=== PATIENT | male | born 1935 | race Caucasian/White ===

== ENCOUNTER 2016-08-02 10:24 | Inpatient (IN) | payer MEDICARE ==
[2016-08-01 11:09] LABS: ASPARTATE AMINO TRANSFERASE 26 U/L (15-37); BLOOD UREA NITROGEN 33 mg/dL (7-18)
[~2016-08-02] VITALS: Ht 180.3 cm; Wt 73.5 kg
[~2016-08-02 10:24] MED LIST: APIX5TAB PO; ASPI-496 PO; ASPI-621 PO; ATOR40TA PO; CALC-192 PO; CEPH-368 PO; CHOL10002 PO; CIPR500T87 PO; FOLI-17 PO; HYDR-3138 PO; LEVO250T23 PO; NAPR220T29 PO; NITR0.4T8 SL; NITR4.1S2 TL; TAMS-11 PO; VALS1TAB15 PO; VALS80TA3 PO; ZOLP10TA PO
[2016-08-02] MEDS ORDERED: FENTANYL PF 100 MCG/2ML ONE (11:46)
[2016-08-02] MEDS ORDERED: MIDAZOLAM 1 MG/ML, 5ML ONE (11:46)
[2016-08-02] MEDS ORDERED: VERAPAMIL 2.5 MG/ML, 2ML ONE (11:46)
[2016-08-02] MEDS ORDERED: BIVALIRUDIN 250 MG ONE ×2 (11:46→13:50)
[2016-08-02] MEDS ORDERED: TICAGRELOR 90 MG TABLET ONE (11:46)
[2016-08-02] MEDS ORDERED: NITROGLYCERIN 5 MG/ML, 10ML ONE (11:46)
[2016-08-02] MEDS ORDERED: LIDOCAINE 2%, 20ML ONE (11:47)
[2016-08-02] MEDS ORDERED: HEPARIN 1,000 UNITS/ML, 10ML ONE (11:47)
[2016-08-02] MEDS ORDERED: DIPHENHYDRAMINE 50 MG/ML, 1ML ONE (12:19)
[2016-08-02] MEDS ORDERED: NITROGLYCERIN/D5W PMX 250 ML ONE (13:22)
[2016-08-02 16:00] VITALS: BP 112/73
[2016-08-02] MEDS ORDERED: ACETAMINOPHEN 325 MG TABLET PO PRN (16:30)
[2016-08-02] MEDS ORDERED: BIVALIRUDIN 250 MG in DEXTROSE 5% 50 ML IV SCH (16:30)
[2016-08-02] MEDS ORDERED: ZOLPIDEM 5MG TABLET PO PRN (16:30)
[2016-08-02] MEDS ORDERED: ONDANSETRON 2MG/ML, 2ML IVPush PRN (16:30)
[2016-08-02] MEDS: SODIUM CHLORIDE 0.9% 1,000 ML IV SCH (17:28)
[2016-08-02 19:14] VITALS: BP 93/59
[2016-08-02] MEDS ORDERED: HYDROcodone/APAP 5/325 TABLET ONE (20:14)
[2016-08-02] MEDS: HYDROcodone/APAP 5/325 TABLET PO PRN ×2 (20:17→21:56)
[2016-08-02] MEDS ORDERED: TAMSULOSIN 0.4 MG CAP.ER.24H PO SCH (21:00)
[2016-08-02] MEDS: TICAGRELOR 90 MG TABLET PO SCH (21:56)
[2016-08-03 00:34] VITALS: BP 96/56
[2016-08-03] MEDS: SODIUM CHLORIDE 0.9% 1,000 ML IV SCH ×2 (00:56→08:30)
[2016-08-03 05:53] LABS: BLOOD UREA NITROGEN 31 mg/dL (7-18)
[2016-08-03 07:31] VITALS: BP 91/51
[2016-08-03] MEDS: TICAGRELOR 90 MG TABLET PO SCH (08:45)
[2016-08-03] MEDS ORDERED: ASPIRIN 81 MG TABLET EC PO SCH (09:00)
[2016-08-03] MEDS ORDERED: ASPI-621 PO (09:11)
[2016-08-03] MEDS ORDERED: TICA90TA PO (09:11)
== END 2016-08-03 12:30 | disposition home or self-care (01) | DRG 246 ==
LOC: CACL 10:24 → 5SO 15:59 → CACL 16:30 → DCLOUNGE 08-03 11:47
PROVIDERS: ADMIT Internal Medicine Cardiovascular Disease; ATTEND Internal Medicine Cardiovascular Disease
PROC: 027137Z Dilation of Coronary Artery, Two Arteries with Four or More Drug-eluting Intraluminal Devices, Percutaneous Approach (ICD-10-PCS; principal; 2016-08-02)
PROC: 02703DZ Dilation of Coronary Artery, One Artery with Intraluminal Device, Percutaneous Approach (ICD-10-PCS; 2016-08-02)
PROC: 4A023N7 Measurement of Cardiac Sampling and Pressure, Left Heart, Percutaneous Approach (ICD-10-PCS; 2016-08-02)
PROC: B2111ZZ Fluoroscopy of Multiple Coronary Arteries using Low Osmolar Contrast (ICD-10-PCS; 2016-08-02)
PROC: B2151ZZ Fluoroscopy of Left Heart using Low Osmolar Contrast (ICD-10-PCS; 2016-08-02)
DX: I25.110 Atherosclerotic heart disease of native coronary artery with unstable angina pectoris (principal); I35.0 Nonrheumatic aortic (valve) stenosis; D64.9 Anemia, unspecified; E78.5 Hyperlipidemia, unspecified; N40.0 Benign prostatic hyperplasia without lower urinary tract symptoms; E78.00 Pure hypercholesterolemia, unspecified; I10 Essential (primary) hypertension; I48.0 Paroxysmal atrial fibrillation; M19.90 Unspecified osteoarthritis, unspecified site; Z86.73 Personal history of transient ischemic attack (TIA), and cerebral infarction without residual deficits
CPT/HCPCS: 36415; 71020; 80048; 80053; 82040; 85014; 85018; 85025; 85610; 85730; 93005; 93458; 99156; 99157; C1876; C1894; C9600; J0583; J1644; J2250; J3010; J3490; C1725; C1769; C1874; C1887; J1200; J7030; Q9967

== ENCOUNTER → 2017-06-28 | Outpatient (CLI) | payer MEDICARE ==
[~2017-06-28] MED LIST changes: -HYDR-3138 PO; +HYDR-3237 PO; +NAPR-816 PO; -NAPR220T29 PO; +NITR0.4T28 SL; -NITR0.4T8 SL; +TICA90TA PO
== END | disposition home or self-care (01) ==
LOC: CVU 14:31
PROVIDERS: ATTEND Internal Medicine Cardiovascular Disease
DX: I71.4 Abdominal aortic aneurysm, without rupture (principal); I35.0 Nonrheumatic aortic (valve) stenosis; I25.10 Atherosclerotic heart disease of native coronary artery without angina pectoris; I10 Essential (primary) hypertension; E78.5 Hyperlipidemia, unspecified; I48.91 Unspecified atrial fibrillation; Z95.5 Presence of coronary angioplasty implant and graft
CPT/HCPCS: 93306

== ENCOUNTER 2017-07-06 07:36 | Observation (INO) | payer MEDICARE ==
[2017-07-05 10:57] VITALS: BP 131/60
[2017-07-05 11:15] LABS: BASOPHILS # (AUTO) 0.04 x10^3/uL (0-0.1); BASOPHILS % (AUTO) 1 % (0-1); EOSINOPHILS # (AUTO) 0.25 x10^3/uL (0-0.4); EOSINOPHILS % (AUTO) 4 % (1-7); LYMPHOCYTES # (AUTO) 1.55 x10^3/uL (1-3.4); LYMPHOCYTES % (AUTO) 24 % (22-44); MD NO; MEAN CORPUSCULAR HEMOGLOBIN 32.2 pg (27.5-34.5); MEAN CORPUSCULAR HGB CONC 33.7 g/dL (33.2-36.2); MEAN CORPUSCULAR VOLUME 95.4 fL (81-97); MEAN PLATELET VOLUME 9.1 fL (7.4-10.4); MONOCYTES % (AUTO) 8 % (2-9); NEUTROPHILS # (AUTO) 4.16 x10^3/uL (1.8-6.8); NEUTROPHILS % (AUTO) 64 % (42-75); PLATELET COUNT 238 x10^3/uL (130-400); RED BLOOD COUNT 4.76 x10^6/uL (4.38-5.82); RED CELL DISTRIBUTION WIDTH 13.6 % (9.4-14.8)
[2017-07-05 11:28] LABS: ALANINE AMINOTRANSFERASE 36 U/L (12-78); ANION GAP 7 mmol/L (5-15); CALCIUM 9.4 mg/dL (8.5-10.1); CHLORIDE 108 mmol/L (98-107); CREATININE 1.49 mg/dL (0.7-1.3)
[2017-07-05 11:29] LABS: ALKALINE PHOSPHATASE 83 U/L (45-117); BILIRUBIN,TOTAL 0.7 mg/dL (0.2-1.0); TOTAL PROTEIN 7.4 g/dL (6.4-8.2)
[~2017-07-06] VITALS: Ht 180.3 cm; Wt 76.0 kg
[2017-07-06] MEDS ORDERED: METO50TA82 PO (08:06)
[2017-07-06] MEDS ORDERED: ISOS30TA8 PO (08:06)
[2017-07-06] MEDS ORDERED: PRED10TA PO (08:06)
[2017-07-06] MEDS ORDERED: HYDR-3237 PO (08:06)
[2017-07-06] MEDS ORDERED: DIPH25CA61 PO (08:06)
[2017-07-06] MEDS ORDERED: MORPHINE SULFATE 4 MG/ML, 1ML ONE ×2 (10:21→10:51)
[2017-07-06] MEDS ORDERED: DIPHENHYDRAMINE 50 MG/ML, 1ML ONE (10:22)
[2017-07-06] MEDS ORDERED: VERAPAMIL 2.5 MG/ML, 2ML ONE (10:22)
[2017-07-06] MEDS ORDERED: LIDOCAINE 2%, 2ML ONE ×2 (10:22→10:51)
[2017-07-06] MEDS ORDERED: HEPARIN 1,000 UNITS/ML, 10ML ONE (10:22)
[2017-07-06] MEDS ORDERED: BIVALIRUDIN 250 MG ONE (10:23)
[2017-07-06] MEDS ORDERED: TICAGRELOR 90 MG TABLET ONE (10:23)
[2017-07-06] MEDS ORDERED: METOPROLOL TARTRATE 50 MG TABLET PO PRN (12:30)
[2017-07-06] MEDS ORDERED: DIPHENHYDRAMINE 25 MG CAPSULE PO PRN (12:30)
[2017-07-06] MEDS ORDERED: ISOSORBIDE MONONITRATE ER 30 MG TABLET PO PRN (12:30)
[2017-07-06 14:24] VITALS: BP 140/84
[2017-07-06] MEDS: SODIUM CHLORIDE 0.9% 1,000 ML IV SCH ×2 (16:14→20:40)
[2017-07-06] MEDS: NITROGLYCERIN 0.4 MG BOTTLE (25 TABS) SL SCH (16:24)
[2017-07-06 18:45] VITALS: BP 130/76
[2017-07-06] MEDS: APIXABAN 5 MG TABLET PO SCH (20:38)
[2017-07-06] MEDS: TICAGRELOR 90 MG TABLET PO SCH (20:38)
[2017-07-06] MEDS ORDERED: ATORVASTATIN 40 MG TABLET PO SCH (21:00)
[2017-07-07 03:56] VITALS: BP 109/64
[2017-07-07] MEDS: SODIUM CHLORIDE 0.9% 1,000 ML IV SCH (05:00)
[2017-07-07 05:58] LABS: ALBUMIN 3.3 g/dL (3.4-5.0); ANION GAP 9 mmol/L (5-15); CALCIUM 8.6 mg/dL (8.5-10.1); CHLORIDE 111 mmol/L (98-107); CREATININE 1.47 mg/dL (0.7-1.3)
[2017-07-07 08:05] VITALS: BP 123/70
[2017-07-07] MEDS ORDERED: VALSARTAN 320 MG TABLET PO SCH (09:00)
[2017-07-07] MEDS ORDERED: HYDROCHLOROTHIAZIDE 12.5 MG CAPSULE PO SCH (09:00)
[2017-07-07] MEDS: TICAGRELOR 90 MG TABLET PO SCH (09:35)
[2017-07-07] MEDS: APIXABAN 5 MG TABLET PO SCH (09:35)
[2017-07-07] MEDS ORDERED: TICA90TA PO (09:48)
[2017-07-07] MEDS: NITROGLYCERIN 0.4 MG BOTTLE (25 TABS) SL SCH (12:30)
== END 2017-07-07 13:27 | disposition home or self-care (01) ==
LOC: CACL 07:36 → ORIP 12:11 → 5SO 14:18 → DCLOUNGE 07-07 13:10
PROVIDERS: ADMIT Internal Medicine Cardiovascular Disease; ATTEND Internal Medicine Cardiovascular Disease
DX: I25.119 Atherosclerotic heart disease of native coronary artery with unspecified angina pectoris (principal); I35.0 Nonrheumatic aortic (valve) stenosis; E78.5 Hyperlipidemia, unspecified; I10 Essential (primary) hypertension; Z82.3 Family history of stroke; Z82.49 Family history of ischemic heart disease and other diseases of the circulatory system
CPT/HCPCS: 36415; 80048; 80053; 82040; 85025; 93005; 93460; 99156; 99157; C1725; C1769; C1874; C1887; C1894; C9600; G0378; J0583; J1200; J1644; J3490; Q0163; Q9967

== ENCOUNTER 2017-08-27 12:18 | Inpatient (IN) | payer MEDICARE ==
[~2017-08-27] VITALS: Ht 180.3 cm; Wt 76.0 kg
[~2017-08-27 12:18] MED LIST changes: +DIPH25CA61 PO; +ISOS30TA8 PO; +METO50TA82 PO; +PRED10TA PO
[2017-08-27] MEDS ORDERED: SODIUM CHLORIDE FLUSH 10ML SYR IVF ONE (12:30)
[2017-08-27 12:46] LABS: BASOPHILS # (AUTO) 0.03 x10^3/uL (0-0.1); BASOPHILS % (AUTO) 0 % (0-1); EOSINOPHILS # (AUTO) 0.17 x10^3/uL (0-0.4); EOSINOPHILS % (AUTO) 2 % (1-7); LYMPHOCYTES # (AUTO) 1.49 x10^3/uL (1-3.4); LYMPHOCYTES % (AUTO) 17 % (22-44); MD NO; MEAN CORPUSCULAR HEMOGLOBIN 32.6 pg (27.5-34.5); MEAN CORPUSCULAR VOLUME 95.8 fL (81-97); MEAN PLATELET VOLUME 9.3 fL (7.4-10.4); MONOCYTES # (AUTO) 0.55 x10^3/uL (0.2-0.8); MONOCYTES % (AUTO) 6 % (2-9); NEUTROPHILS # (AUTO) 6.41 x10^3/uL (1.8-6.8); NEUTROPHILS % (AUTO) 74 % (42-75); PLATELET COUNT 211 x10^3/uL (130-400); RED BLOOD COUNT 4.56 x10^6/uL (4.38-5.82); RED CELL DISTRIBUTION WIDTH 13.7 % (9.4-14.8)
[2017-08-27 12:51] LABS: INTERNATIONAL NORMALIZED RATIO 1.04 (0.93-1.1); PROTHROMBIN TIME 10.8 Seconds (9.6-11.5)
[2017-08-27 12:55] LABS: ALANINE AMINOTRANSFERASE 39 U/L (12-78); ALBUMIN 3.7 g/dL (3.4-5.0); ANION GAP 9 mmol/L (5-15); CALCIUM 9.3 mg/dL (8.5-10.1); CHLORIDE 110 mmol/L (98-107); CREATININE 1.48 mg/dL (0.7-1.3)
[2017-08-27 12:59] LABS: ALKALINE PHOSPHATASE 86 U/L (45-117); BILIRUBIN,TOTAL 0.6 mg/dL (0.2-1.0); TOTAL PROTEIN 6.6 g/dL (6.4-8.2); TROPONIN I 0.023 ng/mL (0.000-0.045)
[2017-08-27] MEDS ORDERED: SODIUM CHLORIDE FLUSH 10ML SYR IVF PRN (14:30)
[2017-08-27] MEDS ORDERED: METOPROLOL TARTRATE 50 MG TABLET PO PRN (15:00)
[2017-08-27] MEDS ORDERED: ENOXAPARIN 40 MG/0.4 ML SQ SCH (15:00)
[2017-08-27] MEDS ORDERED: ONDANSETRON ODT 4 MG PO PRN (15:00)
[2017-08-27] MEDS ORDERED: NITROGLYCERIN 0.4 MG BOTTLE (25 TABS) SL SCH (15:00)
[2017-08-27] MEDS ORDERED: ONDANSETRON 2MG/ML, 2ML IVPush PRN (15:00)
[2017-08-27] MEDS ORDERED: HYDROcodone/APAP 5/325 TABLET PO PRN (15:00)
[2017-08-27] MEDS ORDERED: morphine SULFATE 10 MG/ML, 1ML IVPush PRN (15:00)
[2017-08-27] MEDS ORDERED: POLYETHYLENE GLYCOL 17 GM PACKET PO PRN (15:00)
[2017-08-27] MEDS ORDERED: ISOSORBIDE MONONITRATE ER 30 MG TABLET PO PRN (15:00)
[2017-08-27] MEDS ORDERED: LABETALOL 5MG/ML, 20ML IVPush PRN (15:00)
[2017-08-27] MEDS ORDERED: ENOXAPARIN 40 MG/0.4 ML ONE (15:04)
[2017-08-27 15:05] VITALS: BP 110/56
[2017-08-27] MEDS ORDERED: FINA1TAB16 PO (15:21)
[2017-08-27] MEDS ORDERED: TAMS-11 PO (15:21)
[2017-08-27] MEDS ORDERED: MULT-658 PO (15:21)
[2017-08-27] MEDS ORDERED: NITROGLYCERIN 0.4 MG BOTTLE (25 TABS) SL PRN (18:30)
[2017-08-27] MEDS ORDERED: HEPARIN 5,000 UNITS/ML, 1ML IV PRN (19:30)
[2017-08-27] MEDS ORDERED: HEPARIN 5,000 UNITS/ML, 1ML IV ONE (19:30)
[2017-08-27] MEDS ORDERED: HEPARIN 25,000 UNITS/500ML PMX 500 ML IV PRN (19:30)
[2017-08-27 19:52] VITALS: BP 108/68
[2017-08-27] MEDS: ATORVASTATIN 40 MG TABLET PO SCH (19:59)
[2017-08-27] MEDS: TICAGRELOR 90 MG TABLET PO SCH (19:59)
[2017-08-27] MEDS: TAMSULOSIN 0.4 MG CAP.ER.24H PO SCH (20:00)
[2017-08-27] MEDS ORDERED: APIXABAN 5 MG TABLET PO SCH (21:00)
[2017-08-27] MEDS ORDERED: TICAGRELOR 90 MG TABLET PO SCH (21:00)
[2017-08-27] MEDS: DIPHENHYDRAMINE 25 MG CAPSULE PO PRN (21:58)
[2017-08-28 00:48] VITALS: BP 113/58
[2017-08-28 02:33] LABS: BASOPHILS # (AUTO) 0.04 x10^3/uL (0-0.1); BASOPHILS % (AUTO) 1 % (0-1); EOSINOPHILS # (AUTO) 0.32 x10^3/uL (0-0.4); EOSINOPHILS % (AUTO) 4 % (1-7); LYMPHOCYTES # (AUTO) 2.14 x10^3/uL (1-3.4); LYMPHOCYTES % (AUTO) 28 % (22-44); MD NO; MEAN CORPUSCULAR HEMOGLOBIN 32.8 pg (27.5-34.5); MEAN CORPUSCULAR HGB CONC 34.1 g/dL (33.2-36.2); MEAN CORPUSCULAR VOLUME 95.9 fL (81-97); MEAN PLATELET VOLUME 9.4 fL (7.4-10.4); MONOCYTES # (AUTO) 0.57 x10^3/uL (0.2-0.8); MONOCYTES % (AUTO) 7 % (2-9); NEUTROPHILS # (AUTO) 4.74 x10^3/uL (1.8-6.8); NEUTROPHILS % (AUTO) 61 % (42-75); PLATELET COUNT 186 x10^3/uL (130-400); RED CELL DISTRIBUTION WIDTH 13.2 % (9.4-14.8)
[2017-08-28 02:37] LABS: ALANINE AMINOTRANSFERASE 35 U/L (12-78); ALBUMIN 3.3 g/dL (3.4-5.0); ANION GAP 4 mmol/L (5-15); CALCIUM 8.7 mg/dL (8.5-10.1); CHLORIDE 112 mmol/L (98-107); CREATININE 1.41 mg/dL (0.7-1.3)
[2017-08-28 02:48] LABS: ALKALINE PHOSPHATASE 75 U/L (45-117); BILIRUBIN,TOTAL 0.4 mg/dL (0.2-1.0); TOTAL PROTEIN 5.9 g/dL (6.4-8.2)
[2017-08-28] MEDS: ASPIRIN 81 MG TABLET EC PO SCH (05:19)
[2017-08-28 08:44] VITALS: BP 131/73
[2017-08-28] MEDS: HYDROCHLOROTHIAZIDE 12.5 MG CAPSULE PO SCH (09:00)
[2017-08-28] MEDS: VALSARTAN 320 MG TABLET PO SCH (09:00)
[2017-08-28] MEDS: SENNA/DOCUSATE TABLET PO SCH (09:00)
[2017-08-28] MEDS: FINASTERIDE 5 MG TABLET PO SCH (09:54)
[2017-08-28] MEDS: TICAGRELOR 90 MG TABLET PO SCH (09:55)
[2017-08-28] MEDS ORDERED: FENTANYL PF 100 MCG/2ML ONE (10:02)
[2017-08-28] MEDS ORDERED: TICAGRELOR 90 MG TABLET ONE (10:02)
[2017-08-28] MEDS ORDERED: BIVALIRUDIN 250 MG ONE (10:03)
[2017-08-28] MEDS ORDERED: MORPHINE SULFATE 4 MG/ML, 1ML ONE (10:03)
[2017-08-28] MEDS ORDERED: VERAPAMIL 2.5 MG/ML, 2ML ONE (10:03)
[2017-08-28] MEDS ORDERED: HEPARIN 1,000 UNITS/ML, 10ML ONE (10:03)
[2017-08-28] MEDS ORDERED: DIPHENHYDRAMINE 50 MG/ML, 1ML ONE (10:03)
[2017-08-28] MEDS ORDERED: LIDOCAINE-MPF 2% ,5ML ONE (10:04)
[2017-08-28 11:11] VITALS: BP 127/76
[2017-08-28 16:30] VITALS: BP 119/75
[2017-08-28 19:46] VITALS: BP 101/65
[2017-08-28] MEDS: TAMSULOSIN 0.4 MG CAP.ER.24H PO SCH (19:55)
[2017-08-28] MEDS: ATORVASTATIN 40 MG TABLET PO SCH (19:55)
[2017-08-28] MEDS: DIPHENHYDRAMINE 25 MG CAPSULE PO PRN (21:46)
[2017-08-29 01:12] VITALS: BP 105/61
[2017-08-29 05:41] LABS: BASOPHILS # (AUTO) 0.05 x10^3/uL (0-0.1); BASOPHILS % (AUTO) 1 % (0-1); EOSINOPHILS % (AUTO) 4 % (1-7); LYMPHOCYTES # (AUTO) 1.69 x10^3/uL (1-3.4); LYMPHOCYTES % (AUTO) 24 % (22-44); MD NO; MEAN CORPUSCULAR HEMOGLOBIN 32.5 pg (27.5-34.5); MEAN CORPUSCULAR HGB CONC 33.8 g/dL (33.2-36.2); MEAN CORPUSCULAR VOLUME 96.2 fL (81-97); MEAN PLATELET VOLUME 9.6 fL (7.4-10.4); MONOCYTES % (AUTO) 8 % (2-9); NEUTROPHILS # (AUTO) 4.47 x10^3/uL (1.8-6.8); NEUTROPHILS % (AUTO) 63 % (42-75); PLATELET COUNT 191 x10^3/uL (130-400); RED BLOOD COUNT 4.25 x10^6/uL (4.38-5.82); RED CELL DISTRIBUTION WIDTH 13.2 % (9.4-14.8)
[2017-08-29 05:52] LABS: ALBUMIN 3.1 g/dL (3.4-5.0); CHLORIDE 112 mmol/L (98-107)
[2017-08-29 05:56] LABS: ALANINE AMINOTRANSFERASE 32 U/L (12-78); ALKALINE PHOSPHATASE 79 U/L (45-117); ANION GAP 7 mmol/L (5-15); BILIRUBIN,TOTAL 0.6 mg/dL (0.2-1.0); CREATININE 1.62 mg/dL (0.7-1.3)
[2017-08-29] MEDS: ASPIRIN 81 MG TABLET EC PO SCH (06:22)
[2017-08-29 07:07] VITALS: BP 110/65
[2017-08-29] MEDS: SENNA/DOCUSATE TABLET PO SCH (09:00)
[2017-08-29] MEDS: HYDROCHLOROTHIAZIDE 12.5 MG CAPSULE PO SCH (09:59)
[2017-08-29] MEDS: VALSARTAN 320 MG TABLET PO SCH (09:59)
[2017-08-29 10:00] VITALS: BP 115/67
[2017-08-29] MEDS: FINASTERIDE 5 MG TABLET PO SCH (10:00)
[2017-08-29] MEDS: TICAGRELOR 90 MG TABLET PO SCH ×2 (10:07→20:00)
[2017-08-29] MEDS: LACTATED RINGERS 1,000 ML IV SCH ×2 (10:10→18:38)
[2017-08-29 11:07] VITALS: BP 113/65
[2017-08-29] MEDS: ISOSORBIDE MONONITRATE ER 30 MG TABLET PO SCH (11:12)
[2017-08-29 13:52] VITALS: BP 89/56
[2017-08-29 19:30] VITALS: BP 97/56
[2017-08-29] MEDS: TAMSULOSIN 0.4 MG CAP.ER.24H PO SCH (19:59)
[2017-08-29] MEDS: ATORVASTATIN 40 MG TABLET PO SCH (19:59)
[2017-08-29] MEDS: DIPHENHYDRAMINE 25 MG CAPSULE PO PRN (22:03)
[2017-08-30 00:34] VITALS: BP 115/50
[2017-08-30] MEDS: LACTATED RINGERS 1,000 ML IV SCH ×2 (02:00→10:00)
[2017-08-30 04:54] LABS: BASOPHILS # (AUTO) 0.04 x10^3/uL (0-0.1); BASOPHILS % (AUTO) 1 % (0-1); EOSINOPHILS # (AUTO) 0.37 x10^3/uL (0-0.4); EOSINOPHILS % (AUTO) 5 % (1-7); LYMPHOCYTES % (AUTO) 22 % (22-44); MD NO; MEAN CORPUSCULAR HEMOGLOBIN 32.4 pg (27.5-34.5); MEAN CORPUSCULAR HGB CONC 33.8 g/dL (33.2-36.2); MEAN CORPUSCULAR VOLUME 95.7 fL (81-97); MEAN PLATELET VOLUME 9.3 fL (7.4-10.4); MONOCYTES # (AUTO) 0.66 x10^3/uL (0.2-0.8); MONOCYTES % (AUTO) 9 % (2-9); NEUTROPHILS # (AUTO) 4.63 x10^3/uL (1.8-6.8); NEUTROPHILS % (AUTO) 64 % (42-75); PLATELET COUNT 172 x10^3/uL (130-400); RED BLOOD COUNT 3.84 x10^6/uL (4.38-5.82); RED CELL DISTRIBUTION WIDTH 13.4 % (9.4-14.8)
[2017-08-30 05:05] LABS: ALBUMIN 2.9 g/dL (3.4-5.0); ANION GAP 8 mmol/L (5-15); CALCIUM 8.7 mg/dL (8.5-10.1); CHLORIDE 115 mmol/L (98-107); CREATININE 1.41 mg/dL (0.7-1.3)
[2017-08-30] MEDS: ASPIRIN 81 MG TABLET EC PO SCH (05:51)
[2017-08-30 06:42] VITALS: BP 118/56
[2017-08-30] MEDS: TICAGRELOR 90 MG TABLET PO SCH (08:33)
[2017-08-30] MEDS: VALSARTAN 320 MG TABLET PO SCH (08:33)
[2017-08-30] MEDS: HYDROCHLOROTHIAZIDE 12.5 MG CAPSULE PO SCH (08:34)
[2017-08-30] MEDS: SENNA/DOCUSATE TABLET PO SCH (09:00)
[2017-08-30] MEDS ORDERED: APIXABAN 5 MG TABLET ONE (09:05)
[2017-08-30 09:50] VITALS: BP 137/71
[2017-08-30] MEDS: ISOSORBIDE MONONITRATE ER 30 MG TABLET PO SCH (09:54)
[2017-08-30] MEDS: FINASTERIDE 5 MG TABLET PO SCH (09:54)
[2017-08-30] MEDS ORDERED: APIXABAN 5 MG TABLET PO SCH (10:00)
[2017-08-30] MEDS ORDERED: ISOS30TA8 PO (10:31)
[2017-08-30] MEDS ORDERED: ASPI-621 PO (10:31)
== END 2017-08-30 12:05 | disposition home or self-care (01) | DRG 280 ==
LOC: ED 14:13 → EDIP 14:53 → 5SO 15:14 → DCLOUNGE 08-30 11:55
PROVIDERS: ADMIT Hospitalist; ATTEND Hospitalist
PROC: 4A023N7 Measurement of Cardiac Sampling and Pressure, Left Heart, Percutaneous Approach (ICD-10-PCS; principal; 2017-08-28)
PROC: B2111ZZ Fluoroscopy of Multiple Coronary Arteries using Low Osmolar Contrast (ICD-10-PCS; 2017-08-28)
PROC: B2151ZZ Fluoroscopy of Left Heart using Low Osmolar Contrast (ICD-10-PCS; 2017-08-28)
DX: T82.867A Thrombosis due to cardiac prosthetic devices, implants and grafts, initial encounter (principal); I21.4 Non-ST elevation (NSTEMI) myocardial infarction; E43 Unspecified severe protein-calorie malnutrition; D68.69 Other thrombophilia; G45.9 Transient cerebral ischemic attack, unspecified; N17.9 Acute kidney failure, unspecified; I25.110 Atherosclerotic heart disease of native coronary artery with unstable angina pectoris; I35.0 Nonrheumatic aortic (valve) stenosis; N18.2 Chronic kidney disease, stage 2 (mild); I12.9 Hypertensive chronic kidney disease with stage 1 through stage 4 chronic kidney disease, or unspecified chronic kidney disease; Z66 Do not resuscitate; I48.2 Chronic atrial fibrillation; E78.5 Hyperlipidemia, unspecified; Y83.1 Surgical operation with implant of artificial internal device as the cause of abnormal reaction of the patient, or of later complication, without mention of misadventure at the time of the procedure; E78.00 Pure hypercholesterolemia, unspecified; Z87.891 Personal history of nicotine dependence; Z86.73 Personal history of transient ischemic attack (TIA), and cerebral infarction without residual deficits; I25.2 Old myocardial infarction; Z82.3 Family history of stroke; Z79.01 Long term (current) use of anticoagulants; Z79.82 Long term (current) use of aspirin; Z82.49 Family history of ischemic heart disease and other diseases of the circulatory system; Z88.8 Allergy status to other drugs, medicaments and biological substances
CPT/HCPCS: 36415; 71045; 80048; 80053; 82040; 82962; 83735; 84100; 84439; 84443; 84484; 85025; 85520; 85610; 85730; 93005; 93458; 99156; 99285; C1769; C1894; J0583; J1644; J3010; J3490; J1200; J7120; Q0163; Q9967

== ENCOUNTER 2018-02-26 12:26 | Outpatient (CLI) | payer MEDICARE ==
[~2018-02-26 12:26] MED LIST changes: -ASPI-621 PO; +ASPI81TA45 PO; +FINA1TAB16 PO; +MULT-658 PO
== END 2018-02-26 23:59 | disposition home or self-care (01) ==
LOC: CFH 12:26
PROVIDERS: ATTEND Internal Medicine Cardiovascular Disease
DX: I08.0 Rheumatic disorders of both mitral and aortic valves (principal); I10 Essential (primary) hypertension; E78.5 Hyperlipidemia, unspecified
CPT/HCPCS: 93306

== ENCOUNTER 2018-07-27 15:47 | Outpatient (CLI) | payer MEDICARE | END 2018-07-27 23:59 | disposition home or self-care (01) | LOC: CVU 15:47 | PROVIDERS: ATTEND Internal Medicine Cardiovascular Disease | DX: I08.2 Rheumatic disorders of both aortic and tricuspid valves (principal); R06.02 Shortness of breath; I25.10 Atherosclerotic heart disease of native coronary artery without angina pectoris; I48.91 Unspecified atrial fibrillation; N18.2 Chronic kidney disease, stage 2 (mild) | CPT/HCPCS: 93306 ==

== ENCOUNTER 2018-08-06 09:15 | Inpatient (IN) | payer MEDICARE ==
[~2018-08-06] VITALS: Ht 177.8 cm; Wt 76.5 kg
--- NOTE | 2018-08-06 09:31 | NUR ---
TO ROOM AT THIS TIME
--- NOTE | 2018-08-06 09:48 | NUR ---
HX OF STENTS-SYMPTOMS EACH TIME NECK SPASMS. WITH MILD EXERCISE SYMPTOMS HAVE RETURNED X 2 DAYS- SPOKE TO TROMMEL TENDER (DR ARANGO)- TOLD TO HOLD BLOOD THINNER YESTERDAY AND TODAY AND PRESENT THROUGH ER. EKG OBTAINED APPEARS WELL-VITALS STABLE ON MODERN AND CONTEMPORARY ART CURATOR
[2018-08-06 10:38] LABS: BASOPHILS # (AUTO) 0.04 x10^3/uL (0-0.1); BASOPHILS % (AUTO) 1 % (0-1); EOSINOPHILS # (AUTO) 0.19 x10^3/uL (0-0.4); EOSINOPHILS % (AUTO) 3 % (1-7); LYMPHOCYTES % (AUTO) 26 % (22-44); MD NO; MEAN CORPUSCULAR HEMOGLOBIN 32.5 pg (27.5-34.5); MEAN CORPUSCULAR HGB CONC 33.1 g/dL (33.2-36.2); MEAN CORPUSCULAR VOLUME 98.4 fL (81-97); MEAN PLATELET VOLUME 9.7 fL (7.4-10.4); MONOCYTES # (AUTO) 0.42 x10^3/uL (0.2-0.8); MONOCYTES % (AUTO) 7 % (2-9); NEUTROPHILS # (AUTO) 3.57 x10^3/uL (1.8-6.8); NEUTROPHILS % (AUTO) 63 % (42-75); PLATELET COUNT 189 x10^3/uL (130-400); RED BLOOD COUNT 4.63 x10^6/uL (4.38-5.82); RED CELL DISTRIBUTION WIDTH 13.3 % (9.4-14.8)
[2018-08-06 10:51] LABS: ALBUMIN 3.9 g/dL (3.4-5.0); ANION GAP 5 mmol/L (5-15); CALCIUM 9.3 mg/dL (8.5-10.1); CHLORIDE 112 mmol/L (98-107); CREATININE 1.58 mg/dL (0.7-1.3)
[2018-08-06 10:57] LABS: TROPONIN I < 0.015 ng/mL (0.000-0.045)
--- NOTE | 2018-08-06 11:08 | NUR ---
WITH REASSESSMENT PATIENT WITH NO COMPLAINTS (NECK PAIN/CP/NAUSEA, ETC) VITALS STABLE ON DIRECTOR BUSINESS MANAGEMENT REPORT CALLED TO BETTYE LOZANO ON TELE PATIENT UPDATED ON ESTIMATED POC (NPO FOR POTENTIAL CARDIAC EVAL TODAY)
[2018-08-06 11:17] VITALS: BP 121/72
[2018-08-06] MEDS ORDERED: ACETAMINOPHEN 325 MG TABLET PO PRN (12:00)
[2018-08-06] MEDS ORDERED: hydrALAzine 20 MG/ML, 1ML IVPush PRN (12:00)
[2018-08-06 12:17] VITALS: BP 120/68
[2018-08-06] MEDS ORDERED: ATORVASTATIN 40 MG TABLET PO SCH ×2 (12:30→16:30)
[2018-08-06] MEDS ORDERED: DIPHENHYDRAMINE 25 MG CAPSULE PO PRN (12:30)
[2018-08-06] MEDS ORDERED: METOPROLOL TARTRATE 50 MG TABLET PO PRN (12:30)
[2018-08-06] MEDS ORDERED: HYDROcodone/APAP 5/325 TABLET PO PRN (12:30)
[2018-08-06] MEDS ORDERED: NITROGLYCERIN SINGLE TAB 0.4 MG SL SCH (12:30)
[2018-08-06] MEDS: SODIUM CHLORIDE FLUSH 10ML SYR IVF SCH ×2 (12:50→20:56)
[2018-08-06] MEDS: SODIUM CHLORIDE 0.9% 1,000 ML IV SCH ×3 (12:54→20:57)
[2018-08-06 13:16] LABS: HEMOGLOBIN A1C 5.7 % (4.2-6.3)
[2018-08-06] MEDS ORDERED: HEPARIN 1,000 UNITS/ML, 10ML ONE (16:07)
[2018-08-06] MEDS ORDERED: LIDOCAINE-MPF 1%, 5ML ONE (16:07)
[2018-08-06] MEDS ORDERED: VERAPAMIL 2.5 MG/ML, 2ML ONE (16:07)
[2018-08-06 16:55] LABS: TROPONIN I < 0.015 ng/mL (0.000-0.045)
[2018-08-06] MEDS ORDERED: SODIUM CHLORIDE 0.9% 1,000 ML IV SCH (17:41)
[2018-08-06 18:42] LABS: TROPONIN I < 0.015 ng/mL (0.000-0.045)
[2018-08-06 19:02] VITALS: BP 115/61
[2018-08-06] MEDS ORDERED: TAMSULOSIN 0.4 MG CAP.ER.24H PO SCH (21:00)
[2018-08-06] MEDS: APIXABAN 5 MG TABLET PO SCH (21:01)
[2018-08-06 21:05] LABS: TROPONIN I 0.033 ng/mL (0.000-0.045)
[2018-08-07 01:00] VITALS: BP 103/50
[2018-08-07 05:28] LABS: BASOPHILS # (AUTO) 0.05 x10^3/uL (0-0.1); BASOPHILS % (AUTO) 1 % (0-1); EOSINOPHILS # (AUTO) 0.28 x10^3/uL (0-0.4); EOSINOPHILS % (AUTO) 5 % (1-7); LYMPHOCYTES # (AUTO) 1.69 x10^3/uL (1-3.4); LYMPHOCYTES % (AUTO) 29 % (22-44); MD NO; MEAN CORPUSCULAR VOLUME 96.9 fL (81-97); MEAN PLATELET VOLUME 9.6 fL (7.4-10.4); MONOCYTES # (AUTO) 0.44 x10^3/uL (0.2-0.8); MONOCYTES % (AUTO) 8 % (2-9); NEUTROPHILS % (AUTO) 58 % (42-75); PLATELET COUNT 160 x10^3/uL (130-400); RED CELL DISTRIBUTION WIDTH 13.4 % (9.4-14.8)
[2018-08-07 05:42] LABS: ALBUMIN 3.4 g/dL (3.4-5.0); ANION GAP 9 mmol/L (5-15); CALCIUM 8.6 mg/dL (8.5-10.1); CHLORIDE 112 mmol/L (98-107)
[2018-08-07 05:48] LABS: ALANINE AMINOTRANSFERASE 29 U/L (12-78); ALKALINE PHOSPHATASE 73 U/L (45-117); BILIRUBIN,TOTAL 0.4 mg/dL (0.2-1.0); CHOL/HDL RATIO 3.5; CHOLESTEROL, TOTAL 134 mg/dL (140-239); CREATININE 1.34 mg/dL (0.7-1.3); HDL CHOL % 28 % (26-37); HDL CHOLESTEROL (DIRECT) 38 mg/dL (40-60); LDL CHOLESTEROL,CALCULATED 55 mg/dL (54-169); LDL/HDL RATIO 1.4 (0.5-3.0); TRIGLYCERIDES 204 mg/dL (50-200); TROPONIN I 0.024 ng/mL (0.000-0.045); VLDL CHOLESTEROL 41 mg/dL (0-25)
[2018-08-07] MEDS ORDERED: METOPROLOL SUCCINATE 50 MG TAB.ER.24H PO SCH (06:00)
[2018-08-07] MEDS ORDERED: ASPIRIN 81 MG TABLET EC PO SCH (06:00)
[2018-08-07 06:58] VITALS: BP 116/60
[2018-08-07] MEDS ORDERED: VALSARTAN 320 MG TABLET PO SCH (09:00)
[2018-08-07] MEDS ORDERED: MULTIVITAMIN 1 TABLET PO SCH (09:00)
[2018-08-07] MEDS ORDERED: FINASTERIDE 1 MG HOMEMEDPO SCH (09:00)
[2018-08-07] MEDS ORDERED: ISOSORBIDE MONONITRATE ER 30 MG TABLET PO SCH ×2 (09:00)
[2018-08-07] MEDS ORDERED: HYDROCHLOROTHIAZIDE 12.5 MG CAPSULE PO SCH (09:00)
[2018-08-07] MEDS: APIXABAN 5 MG TABLET PO SCH (09:25)
[2018-08-07] MEDS: SODIUM CHLORIDE FLUSH 10ML SYR IVF SCH (09:26)
[2018-08-07] MEDS ORDERED: ATOR40TA78 PO (10:58)
[2018-08-07] MEDS ORDERED: METO-93 PO (10:58)
[2018-08-07] MEDS ORDERED: ISOS30TA8 PO (10:58)
== END 2018-08-07 12:40 | disposition home or self-care (01) | DRG 287 ==
LOC: ED 10:23 → EDIP 10:27 → 5SO 11:16 → DCLOUNGE 08-07 12:15
PROVIDERS: ADMIT Internal Medicine; ATTEND Internal Medicine
PROC: 4A023N7 Measurement of Cardiac Sampling and Pressure, Left Heart, Percutaneous Approach (ICD-10-PCS; principal; 2018-08-06)
PROC: B2111ZZ Fluoroscopy of Multiple Coronary Arteries using Low Osmolar Contrast (ICD-10-PCS; 2018-08-06)
PROC: B2151ZZ Fluoroscopy of Left Heart using Low Osmolar Contrast (ICD-10-PCS; 2018-08-06)
DX: I25.110 Atherosclerotic heart disease of native coronary artery with unstable angina pectoris (principal); D68.59 Other primary thrombophilia; I12.9 Hypertensive chronic kidney disease with stage 1 through stage 4 chronic kidney disease, or unspecified chronic kidney disease; I48.2 Chronic atrial fibrillation; E78.00 Pure hypercholesterolemia, unspecified; Z66 Do not resuscitate; I35.0 Nonrheumatic aortic (valve) stenosis; N18.3 Chronic kidney disease, stage 3 (moderate); I48.0 Paroxysmal atrial fibrillation; E78.5 Hyperlipidemia, unspecified; Z86.73 Personal history of transient ischemic attack (TIA), and cerebral infarction without residual deficits; I25.2 Old myocardial infarction; Z79.01 Long term (current) use of anticoagulants; Z79.82 Long term (current) use of aspirin; Z79.899 Other long term (current) drug therapy; Z82.3 Family history of stroke; Z82.49 Family history of ischemic heart disease and other diseases of the circulatory system; Z87.442 Personal history of urinary calculi; Z87.891 Personal history of nicotine dependence
CPT/HCPCS: 36415; 71045; 80048; 80053; 80061; 82040; 83036; 83880; 84443; 84484; 85025; 93005; 93458; 93571; 99285; C1894; G0378; J1644; C1769; C1887; J7030; Q0163; Q9967

== ENCOUNTER 2019-03-22 12:53 | Outpatient (CLI) | payer MEDICARE ==
[~2019-03-22 12:53] MED LIST changes: +ATOR40TA78 PO; +METO-93 PO
== END 2019-03-22 23:59 | disposition home or self-care (01) ==
LOC: CFH 12:53
PROVIDERS: ATTEND Internal Medicine Cardiovascular Disease
DX: I08.3 Combined rheumatic disorders of mitral, aortic and tricuspid valves (principal)
CPT/HCPCS: 93306

== ENCOUNTER 2019-09-05 10:26 | Day surgery (SDC) | payer MEDICARE ==
[~2019-09-05] VITALS: Ht 180.3 cm; Wt 72.7 kg
[2019-09-05] MEDS ORDERED: PRED10TA PO (11:02)
[2019-09-05] MEDS ORDERED: CHOL10003 PO (11:02)
[2019-09-05] MEDS ORDERED: DUTA0.5C PO (11:04)
[2019-09-05 11:30] VITALS: BP 92/68
[2019-09-05] MEDS ORDERED: HEPARIN 1,000 UNITS/ML, 10ML ONE (12:27)
[2019-09-05] MEDS ORDERED: VERAPAMIL 2.5 MG/ML, 2ML ONE (12:27)
[2019-09-05] MEDS ORDERED: LIDOCAINE-MPF 1%, 5ML ONE (12:27)
[2019-09-05] MEDS ORDERED: BIVALIRUDIN 250 MG ONE (12:27)
[2019-09-05] MEDS ORDERED: DIPHENHYDRAMINE 50 MG/ML, 1ML ONE (12:27)
[2019-09-05] MEDS ORDERED: LIDOCAINE 2%, 20ML ONE (12:54)
[2019-09-05] MEDS ORDERED: NITROGLYCERIN SINGLE TAB 0.4 MG SL SCH (14:00)
[2019-09-05] MEDS ORDERED: ATORVASTATIN 40 MG TABLET PO SCH (16:30)
[2019-09-05] MEDS ORDERED: APIXABAN 5 MG TABLET PO SCH (21:00)
[2019-09-05] MEDS ORDERED: TAMSULOSIN 0.4 MG CAP.ER.24H PO SCH (21:00)
[2019-09-06] MEDS ORDERED: DUTASTERIDE 0.5 MG CAPSULE PO SCH (09:00)
[2019-09-06] MEDS ORDERED: ISOSORBIDE MONONITRATE ER 30 MG TABLET PO SCH (09:00)
[2019-09-06] MEDS ORDERED: CHOLECALCIFEROL 1,000 UNIT TABLET PO SCH (09:00)
== END 2019-09-05 16:57 | disposition home or self-care (01) ==
LOC: CACL 10:26
PROVIDERS: ATTEND Internal Medicine Cardiovascular Disease
DX: I35.0 Nonrheumatic aortic (valve) stenosis (principal); I25.119 Atherosclerotic heart disease of native coronary artery with unspecified angina pectoris; E78.00 Pure hypercholesterolemia, unspecified; I10 Essential (primary) hypertension; I48.0 Paroxysmal atrial fibrillation; M19.90 Unspecified osteoarthritis, unspecified site; Z88.8 Allergy status to other drugs, medicaments and biological substances; Z79.899 Other long term (current) drug therapy; Z86.73 Personal history of transient ischemic attack (TIA), and cerebral infarction without residual deficits; Z79.01 Long term (current) use of anticoagulants; Z72.89 Other problems related to lifestyle; Z82.49 Family history of ischemic heart disease and other diseases of the circulatory system
CPT/HCPCS: 93460; 93571; C1760; C1769; C1887; C1894; J1200; J1644; Q9967; J0583

== ENCOUNTER → 2019-09-13 | Outpatient (CLI) | payer MEDICARE ==
[~2019-09-13] MED LIST changes: +CHOL10003 PO; +DUTA0.5C PO
== END | disposition home or self-care (01) ==
LOC: RAD 10:54
PROVIDERS: ATTEND Physician Assistant Medical
DX: M79.81 Nontraumatic hematoma of soft tissue (principal)

== ENCOUNTER → 2020-05-20 | Outpatient (CLI) | payer MEDICARE ==
[~2020-05-20] MED LIST changes: -FOLI-17 PO; +FOLI1TAB32 PO
== END | disposition home or self-care (01) ==
LOC: CFH 15:53
PROVIDERS: ATTEND Internal Medicine Cardiovascular Disease
DX: I08.8 Other rheumatic multiple valve diseases (principal); I11.9 Hypertensive heart disease without heart failure; G45.9 Transient cerebral ischemic attack, unspecified
CPT/HCPCS: 93306

== ENCOUNTER 2020-06-02 10:21 | Observation (INO) | payer MEDICARE ==
[~2020-06-02] VITALS: Ht 180.3 cm; Wt 75.0 kg
[~2020-06-02 10:21] MED LIST changes: +VALS1TAB PO; -VALS1TAB15 PO
[2020-06-02] MEDS ORDERED: SODIUM CHLORIDE 0.9% 1,000 ML IV SCH (11:00)
[2020-06-02] MEDS ORDERED: ATOR80TA PO (11:36)
[2020-06-02] MEDS ORDERED: ISOS30TA8 PO (11:36)
[2020-06-02] MEDS ORDERED: ASPIRIN 325 MG TABLET EC ONE (11:41)
[2020-06-02] MEDS ORDERED: ASPIRIN 325 MG TABLET EC PO ONE (12:00)
[2020-06-02 13:06] LABS: BASOPHILS % (AUTO) 1 % (0-1); EOSINOPHILS % (AUTO) 2 % (1-7); LYMPHOCYTES % (AUTO) 23 % (22-44); MEAN CORPUSCULAR HEMOGLOBIN 31.9 pg (27.5-34.5); MEAN CORPUSCULAR HGB CONC 33.9 g/dL (33.2-36.2); MEAN PLATELET VOLUME 9.9 fL (7.4-10.4); MONOCYTES % (AUTO) 8 % (2-9); NEUTROPHILS % (AUTO) 67 % (42-75); PLATELET COUNT 182 x10^3/uL (130-400); RED BLOOD COUNT 4.95 x10^6/uL (4.38-5.82); RED CELL DISTRIBUTION WIDTH 13.9 % (9.4-14.8)
[2020-06-02] MEDS ORDERED: VERAPAMIL 2.5 MG/ML, 2ML ONE (13:10)
[2020-06-02] MEDS ORDERED: TICAGRELOR 90 MG TABLET ONE (13:10)
[2020-06-02] MEDS ORDERED: MIDAZOLAM 1 MG/ML, 5ML ONE (13:10)
[2020-06-02] MEDS ORDERED: LIDOCAINE 2%, 20ML ONE (13:10)
[2020-06-02] MEDS ORDERED: FENTANYL PF 100 MCG/2ML ONE ×2 (13:10→13:59)
[2020-06-02] MEDS ORDERED: HEPARIN 1,000 UNITS/ML, 10ML ONE (13:10)
[2020-06-02] MEDS ORDERED: BIVALIRUDIN 250 MG ONE (13:10)
[2020-06-02 13:15] LABS: ANION GAP 6 mmol/L (5-15); CALCIUM 9.9 mg/dL (8.5-10.1); CHLORIDE 110 mmol/L (98-107); CREATININE 1.51 mg/dL (0.7-1.3)
[2020-06-02 13:17] LABS: MD NO
[2020-06-02] MEDS ORDERED: DIPHENHYDRAMINE 50 MG/ML, 1ML ONE (13:44)
[2020-06-02] MEDS ORDERED: MIDAZOLAM 1 MG/ML, 2ML ONE (13:59)
[2020-06-02] MEDS ORDERED: CLOPIDOGREL 300 MG TABLET ONE (14:18)
[2020-06-02] MEDS ORDERED: ZOLPIDEM 5MG TABLET PO PRN (15:00)
[2020-06-02] MEDS ORDERED: ACETAMINOPHEN 325 MG TABLET PO PRN (15:00)
[2020-06-02] MEDS ORDERED: NITROGLYCERIN SINGLE TAB 0.4 MG SL PRN (15:00)
[2020-06-02] MEDS ORDERED: ONDANSETRON 2MG/ML, 2ML IVPush PRN (15:00)
[2020-06-02] MEDS ORDERED: BIVALIRUDIN 250 MG in SODIUM CHLORIDE 0.9% 50 ML IV SCH (15:00)
[2020-06-02 20:01] VITALS: BP 158/83
[2020-06-02] MEDS ORDERED: ATORVASTATIN 80 MG TABLET PO SCH (21:00)
[2020-06-02] MEDS ORDERED: TAMSULOSIN 0.4 MG CAP.ER.24H PO SCH (21:00)
[2020-06-02] MEDS: APIXABAN 5 MG TABLET PO SCH (21:15)
[2020-06-03 01:05] VITALS: BP 137/79
[2020-06-03 04:48] LABS: ANION GAP 5 mmol/L (5-15); CALCIUM 8.9 mg/dL (8.5-10.1); CHLORIDE 113 mmol/L (98-107); CREATININE 1.33 mg/dL (0.7-1.3)
[2020-06-03 08:17] VITALS: BP 157/82
[2020-06-03] MEDS: APIXABAN 5 MG TABLET PO SCH (08:18)
[2020-06-03] MEDS ORDERED: CHOLECALCIFEROL 1,000 UNIT TABLET PO SCH (09:00)
[2020-06-03] MEDS ORDERED: CLOPIDOGREL 75 MG TABLET PO SCH (09:00)
[2020-06-03] MEDS ORDERED: DUTASTERIDE 0.5 MG CAPSULE PO SCH (09:00)
[2020-06-03] MEDS ORDERED: ISOSORBIDE MONONITRATE ER 30 MG TABLET PO SCH (09:00)
[2020-06-03] MEDS ORDERED: CLOP75TA PO (09:48)
== END 2020-06-03 11:50 | disposition home or self-care (01) ==
LOC: CACL 10:21 → 5SO 14:38 → CACL 14:38 → 5SO 17:02 → DCLOUNGE 06-03 11:35
PROVIDERS: ADMIT Internal Medicine Cardiovascular Disease; ATTEND Internal Medicine Cardiovascular Disease
DX: I25.110 Atherosclerotic heart disease of native coronary artery with unstable angina pectoris (principal); I25.82 Chronic total occlusion of coronary artery; I35.0 Nonrheumatic aortic (valve) stenosis; I48.0 Paroxysmal atrial fibrillation; I10 Essential (primary) hypertension; E78.00 Pure hypercholesterolemia, unspecified; G45.9 Transient cerebral ischemic attack, unspecified; E78.2 Mixed hyperlipidemia; Z86.73 Personal history of transient ischemic attack (TIA), and cerebral infarction without residual deficits; Z79.01 Long term (current) use of anticoagulants; Z79.899 Other long term (current) drug therapy; Z01.810 Encounter for preprocedural cardiovascular examination
CPT/HCPCS: 36415; 80048; 85025; 93005; 93458; 99156; 99157; C1725; C1769; C1874; C1887; C1894; C9600; G0378; J0583; J1200; J1644; J2250; J3010; J3490; Q9967

== ENCOUNTER 2020-06-23 06:31 | Inpatient (IN) | payer MEDICARE ==
[~2020-06-23] VITALS: Ht 180.3 cm; Wt 76.2 kg
[~2020-06-23 06:31] MED LIST changes: +ATOR80TA PO; +CLOP75TA PO
[2020-06-23] MEDS ORDERED: SODIUM CHLORIDE 0.9% 1,000 ML IV ONE (07:00)
[2020-06-23] MEDS ORDERED: ONDANSETRON 2MG/ML, 2ML IV PRN (07:00)
[2020-06-23] MEDS ORDERED: ISOS30TA8 PO (07:10)
[2020-06-23 07:11] VITALS: BP 154/87
[2020-06-23 07:12] LABS: BASOPHILS % (AUTO) 1 % (0-1); EOSINOPHILS % (AUTO) 3 % (1-7); LYMPHOCYTES % (AUTO) 29 % (22-44); MEAN CORPUSCULAR HEMOGLOBIN 31.8 pg (27.5-34.5); MEAN CORPUSCULAR HGB CONC 33.6 g/dL (33.2-36.2); MEAN PLATELET VOLUME 9.5 fL (7.4-10.4); MONOCYTES % (AUTO) 7 % (2-9); NEUTROPHILS % (AUTO) 59 % (42-75); PLATELET COUNT 203 x10^3/uL (130-400); RED BLOOD COUNT 4.81 x10^6/uL (4.38-5.82); RED CELL DISTRIBUTION WIDTH 13.7 % (9.4-14.8)
[2020-06-23 07:13] LABS: MD NO
[2020-06-23 07:22] LABS: INTERNATIONAL NORMALIZED RATIO 1.04 (0.93-1.1); PROTHROMBIN TIME 11.1 Seconds (9.6-11.5)
[2020-06-23 07:24] LABS: ALANINE AMINOTRANSFERASE 29 U/L (12-78); ANION GAP 6 mmol/L (5-15); CALCIUM 8.9 mg/dL (8.5-10.1); CHLORIDE 112 mmol/L (98-107); CREATININE 1.42 mg/dL (0.7-1.3)
[2020-06-23 07:26] LABS: ALKALINE PHOSPHATASE 93 U/L (45-117); BILIRUBIN,TOTAL 0.5 mg/dL (0.2-1.0); TOTAL PROTEIN 7.2 g/dL (6.4-8.2)
[2020-06-23] MEDS ORDERED: FENTANYL PF 100 MCG/2ML ONE (07:58)
[2020-06-23] MEDS ORDERED: PROTAMINE SULFATE 10 MG/ML, 5ML ONE (08:04)
[2020-06-23] MEDS ORDERED: DEXAMETHASONE 4 MG/ML, 1ML ONE (08:07)
[2020-06-23] MEDS ORDERED: GLYCOPYRROLATE 0.2MG/1ML, 5ML ONE (08:07)
[2020-06-23] MEDS ORDERED: LIDOCAINE-MPF 2% ,5ML ONE (08:07)
[2020-06-23] MEDS ORDERED: SUCCINYLCHOLINE 20 MG/ML, 10ML ONE (08:07)
[2020-06-23] MEDS ORDERED: CEFAZOLIN 1,000 MG ONE (08:07)
[2020-06-23] MEDS ORDERED: HEPARIN 1,000 UNITS/ML, 10ML ONE ×3 (08:07)
[2020-06-23] MEDS ORDERED: ROCURONIUM 10MG/ML,5ML ONE (08:07)
[2020-06-23] MEDS ORDERED: PROPOFOL 10 MG/ML, 20ML ONE (08:07)
[2020-06-23] MEDS ORDERED: NEOSTIGMINE 1 MG/ML, 10ML ONE (08:07)
[2020-06-23] MEDS ORDERED: ONDANSETRON 2MG/ML, 2ML ONE (08:07)
[2020-06-23] MEDS ORDERED: PHENYLEPHRINE 10 MG/ML ONE (08:43)
[2020-06-23] MEDS ORDERED: hydrALAzine 20 MG/ML, 1ML ONE (08:51)
[2020-06-23] MEDS: CLOPIDOGREL 75 MG TABLET PO SCH (09:00)
[2020-06-23] MEDS ORDERED: CHOLECALCIFEROL 1,000 UNIT TABLET PO SCH (09:00)
[2020-06-23] MEDS ORDERED: hydrALAzine 20 MG/ML, 1ML IVPush PRN (09:00)
[2020-06-23] MEDS ORDERED: ACETAMINOPHEN 325 MG TABLET PO PRN (09:00)
[2020-06-23] MEDS ORDERED: MORPHINE SULFATE 4 MG/ML, 1ML ONE (10:05)
[2020-06-23] MEDS ORDERED: MORPHINE SULFATE 4 MG/ML, 1ML IVPush ONE (10:30)
[2020-06-23] MEDS ORDERED: APIXABAN 5 MG TABLET ONE (10:43)
[2020-06-23] MEDS: APIXABAN 5 MG TABLET PO SCH ×2 (10:45→21:23)
[2020-06-23] MEDS ORDERED: DUTASTERIDE 0.5 MG CAPSULE PO SCH (12:41)
[2020-06-23] MEDS ORDERED: ISOSORBIDE MONONITRATE ER 30 MG TABLET PO SCH (12:49)
[2020-06-23] MEDS ORDERED: NITROGLYCERIN 0.4 MG BOTTLE (25 TABS) SL SCH (12:50)
[2020-06-23] MEDS ORDERED: LABETALOL 5MG/ML, 20ML IVPush PRN (13:00)
[2020-06-23 15:14] VITALS: BP 103/64
[2020-06-23] MEDS ORDERED: NITROGLYCERIN 0.4 MG BOTTLE (25 TABS) SL PRN (15:30)
[2020-06-23 20:40] VITALS: BP 105/59
[2020-06-23] MEDS ORDERED: DIPHENHYDRAMINE 25 MG CAPSULE PO PRN (21:00)
[2020-06-23] MEDS ORDERED: TAMSULOSIN 0.4 MG CAP.ER.24H PO SCH (21:00)
[2020-06-23] MEDS ORDERED: ATORVASTATIN 80 MG TABLET PO SCH (21:00)
[2020-06-24 01:27] VITALS: BP 109/63
[2020-06-24 05:03] LABS: BASOPHILS % (AUTO) 0 % (0-1); EOSINOPHILS % (AUTO) 0 % (1-7); LYMPHOCYTES % (AUTO) 4 % (22-44); MEAN CORPUSCULAR HEMOGLOBIN 31.6 pg (27.5-34.5); MEAN CORPUSCULAR HGB CONC 33.6 g/dL (33.2-36.2); MEAN PLATELET VOLUME 9.6 fL (7.4-10.4); MONOCYTES % (AUTO) 6 % (2-9); NEUTROPHILS % (AUTO) 90 % (42-75); PLATELET COUNT 154 x10^3/uL (130-400); RED CELL DISTRIBUTION WIDTH 13.9 % (9.4-14.8)
[2020-06-24 05:16] LABS: ANION GAP 5 mmol/L (5-15); CALCIUM 8.7 mg/dL (8.5-10.1); CHLORIDE 113 mmol/L (98-107); CREATININE 1.53 mg/dL (0.7-1.3)
[2020-06-24 06:07] LABS: MD SCAN
[2020-06-24 06:51] VITALS: BP 130/64
[2020-06-24] MEDS: CLOPIDOGREL 75 MG TABLET PO SCH (08:51)
[2020-06-24] MEDS: APIXABAN 5 MG TABLET PO SCH (08:51)
[2020-06-24] MEDS ORDERED: CHOLECALCIFEROL 1,000 UNIT TABLET PO SCH (09:00)
[2020-06-24] MEDS ORDERED: ISOSORBIDE MONONITRATE ER 30 MG TABLET PO SCH (09:00)
[2020-06-24] MEDS ORDERED: DUTASTERIDE 0.5 MG CAPSULE PO SCH (09:00)
[2020-06-24] MEDS ORDERED: ACET325T26 PO (09:33)
== END 2020-06-24 11:35 | disposition home or self-care (01) | DRG 266 ==
LOC: ORIP 06:31 → 5SO 12:38 → DCLOUNGE 06-24 11:16
PROVIDERS: ADMIT Internal Medicine Cardiovascular Disease; ATTEND Internal Medicine Cardiovascular Disease
PROC: B24BZZ4 Ultrasonography of Heart with Aorta, Transesophageal (ICD-10-PCS; 2020-06-23)
PROC: B3101ZZ Fluoroscopy of Thoracic Aorta using Low Osmolar Contrast (ICD-10-PCS; 2020-06-23)
PROC: 02RF38Z Replacement of Aortic Valve with Zooplastic Tissue, Percutaneous Approach (ICD-10-PCS; principal; 2020-06-23 08:30)
DX: I35.0 Nonrheumatic aortic (valve) stenosis (principal); Z00.6 Encounter for examination for normal comparison and control in clinical research program; I50.33 Acute on chronic diastolic (congestive) heart failure; D68.69 Other thrombophilia; I13.0 Hypertensive heart and chronic kidney disease with heart failure and stage 1 through stage 4 chronic kidney disease, or unspecified chronic kidney disease; E78.2 Mixed hyperlipidemia; I48.0 Paroxysmal atrial fibrillation; N18.9 Chronic kidney disease, unspecified; Z86.73 Personal history of transient ischemic attack (TIA), and cerebral infarction without residual deficits; I25.10 Atherosclerotic heart disease of native coronary artery without angina pectoris; Z20.822 Contact with and (suspected) exposure to COVID-19; Z88.8 Allergy status to other drugs, medicaments and biological substances
CPT/HCPCS: 33361; 36415; 76937; 80048; 80053; 85025; 85610; 86850; 86900; 86923; 87635; 93005; 93306; 93312; 93321; 93325; 93355; 93356; C1760; C1769; C1894; G0378; J0690; J1100; J1644; J2405; J2704; J2710; J2720; J3010; J0330; J0360; J2270; J2370; Q9967

== ENCOUNTER 2020-06-25 16:05 | Emergency (ER) | payer MEDICARE ==
[~2020-06-25] VITALS: Ht 180.3 cm; Wt 79.7 kg
[~2020-06-25 16:05] MED LIST changes: +ACET325T26 PO
--- NOTE | 2020-06-25 16:14 | NUR ---
MARKETING DATABASE COORDINATOR: EKG DONE IN TRIAGE.
--- NOTE | 2020-06-25 16:31 | NUR ---
THIS IS A 85 YEAR OLD MALE WHO C/O SEVERE ACHES AND PAINS STARTED YESTERDAY ABOUT 1600. 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 PT DENIES CP, SOB, DIZZINESS. PT STATES HE RECEIVED FENTYNAL DURING PROCEDURE AND THIS IS SIDE EFFECTS. PT PLACED ON POLYSOM TECH, SINUS, CONTINOUS SP02 AND CYCLE VS.
--- NOTE | 2020-06-25 16:56 | NUR ---
Report received from meal break RN and care assumed. Pt sitting in bed without acute distress noted at this time.
--- NOTE | 2020-06-25 17:27 | NUR ---
MD assessment completed with orders present and reviewed.
--- NOTE | 2020-06-25 17:50 | NUR ---
business technology analyst at bedside for draw at this time.
[2020-06-25 18:27] LABS: BASOPHILS % (AUTO) 1 % (0-1); EOSINOPHILS % (AUTO) 4 % (1-7); LYMPHOCYTES % (AUTO) 15 % (22-44); MONOCYTES % (AUTO) 9 % (2-9); NEUTROPHILS % (AUTO) 72 % (42-75); PLATELET COUNT 122 x10^3/uL (130-400); RED BLOOD COUNT 4.17 x10^6/uL (4.38-5.82); RED CELL DISTRIBUTION WIDTH 14.1 % (9.4-14.8)
[2020-06-25 18:31] LABS: MD NO
[2020-06-25 18:33] LABS: ALBUMIN 3.6 g/dL (3.4-5.0); ANION GAP 5 mmol/L (5-15); CHLORIDE 115 mmol/L (98-107)
[2020-06-25 18:42] LABS: ALANINE AMINOTRANSFERASE 26 U/L (12-78); ALKALINE PHOSPHATASE 76 U/L (45-117); BILIRUBIN,TOTAL 0.5 mg/dL (0.2-1.0); CREATININE 1.19 mg/dL (0.7-1.3); TOTAL PROTEIN 6.4 g/dL (6.4-8.2)
[2020-06-25 18:59] VITALS: BP 124/82
--- NOTE | 2020-06-25 19:00 | NUR ---
Pt results reviewed, chart marked for recheck by MD, and pt updated to where in the process he is. VS reassessed.
--- NOTE | 2020-06-25 19:01 | NUR ---
Noted added test to blood work are now pending results. Pt updated.
[2020-06-25 19:03] LABS: HCT (SEDRATE) 39.3 % (39.2-51.8)
== END 2020-06-25 20:13 | disposition home or self-care (01) ==
LOC: ED 16:35
DX: M79.10 Myalgia, unspecified site (principal); M25.50 Pain in unspecified joint; I48.91 Unspecified atrial fibrillation; I10 Essential (primary) hypertension; I25.2 Old myocardial infarction; E78.00 Pure hypercholesterolemia, unspecified; Z88.8 Allergy status to other drugs, medicaments and biological substances; Z86.73 Personal history of transient ischemic attack (TIA), and cerebral infarction without residual deficits; Z90.89 Acquired absence of other organs
CPT/HCPCS: 36415; 80053; 85025; 85651; 86140; 93005; 99285

== ENCOUNTER → 2020-07-16 | Outpatient (CLI) | payer MEDICARE | END | disposition home or self-care (01) | LOC: CVU 15:55 | PROVIDERS: ATTEND Internal Medicine Cardiovascular Disease | DX: Z01.810 Encounter for preprocedural cardiovascular examination (principal); I08.8 Other rheumatic multiple valve diseases; R06.02 Shortness of breath; I65.29 Occlusion and stenosis of unspecified carotid artery; I11.9 Hypertensive heart disease without heart failure | CPT/HCPCS: 93306 ==